=== PATIENT | male | born 1955 | race Caucasian/White ===

== ENCOUNTER 2020-05-03 14:39 | Outpatient (CLI) | payer MEDICARE, MEDICAID, SELFPAY ==
--- NOTE | 2020-05-03 14:53 | ECHO_ITS ---
Patient Info Name: Akhil Morton Age: 64 years : 1955 Gender: Male Ht: 69 in Wt: 335 lbs BSA: 2.80 m2 HR: 77 bpm BP: 115 / 92 mmHg Technical Quality: Fair Exam Date: 05/03/2020 3:03 PM Exam Location: [facility] Patient Status: Outpatient Admit Date: 05/03/2020 Staff Ordering Physician: Curtis Solo MD Credit Collector: Zuri Varghese RDCS Attending Provider: Curtis Solo MD Referring Physician: Germania DELGADO; Exam Type: CA echo doppler color flow Study Info Indications I50.9 - Heart failure, unspecified Complete two-dimensional, color flow and Doppler transthoracic echocardiogram is performed. Summary 1. Complete two-dimensional, color flow and Doppler transthoracic echocardiogram is performed. 2. Left ventricular chamber dimension is normal. 3. Left ventricular systolic function is normal, estimated at 60-65%. 4. There is mildly increased left ventricular wall thickness. 5. The left ventricular diastolic function is normal. 6. E/e' 7 is not elevated. 7. Left atrial chamber dimension is moderately enlarged. 8. There is moderate aortic valve sclerosis. 9. The mitral valve has mildly calcified annulus. 10. There is trace mitral valve regurgitation. 11. No pulmonary hypertension, estimated pulmonary arterial systolic pressure is 25 mmHg. Left Ventricle E/e' 7 is not elevated. Left ventricular chamber dimension is normal. Left ventricular systolic function is normal, estimated at 60-65%. There is mildly increased left ventricular wall thickness. The left ventricular diastolic function is normal. Right Ventricle Right ventricular chamber dimension is normal. Right ventricular systolic function is normal. Left Atria Left atrial chamber dimension is moderately enlarged. Right Atria Right atrial chamber dimension is normal. Aortic Valve The aortic valve is trileaflet. There is moderate aortic valve sclerosis. There is no aortic valve stenosis. There is no aortic valve regurgitation. Pulmonic Valve There is no pulmonic regurgitation. Mitral Valve The mitral valve has mildly calcified annulus. There is no mitral valve stenosis. There is trace mitral valve regurgitation. Tricuspid Valve There is no tricuspid valve regurgitation. No pulmonary hypertension, estimated pulmonary arterial systolic pressure is 25 mmHg. Pericardium/Pleural There is no pericardial effusion. Inferior Vena Cava Normal inferior vena cava with >50% collapse upon inspiration consistent with normal right atrial pressure, 5 mmHg. Aorta The aortic root size at the sinus of Valsalva is normal. Left Ventricular Outflow Tract Name Value Normal LVOT 2D LVOT Diameter 2.2 cm LVOT Doppler LVOT Peak Gradient 7 mmHg LVOT Mean Gradient 4 mmHg LVOT VTI 29 cm LVOT VTI/AV VTI Ratio 1.2 LVOT Stroke Volume 115 ml LVOT CO 8.9 l/min LVOT CI 3.2 l/min/m2 Pulmonic Valve
== END 2020-05-03 14:40 | disposition home or self-care (01) ==
PROVIDERS: PCP Family Medicine; Visit Provider Family Medicine
DX: I50.9 Heart failure, unspecified (principal); R06.00 Dyspnea, unspecified; I35.0 Nonrheumatic aortic (valve) stenosis
CPT/HCPCS: 93306

== ENCOUNTER 2024-12-11 12:15 | Emergency (ER) | payer MEDICARE, MEDICAID, SELFPAY ==
--- NOTE | ~2024-12-11 | US_ITS ---
EXAMINATION: US venous doppler [facility] DATE: 12/11/2024 13:21 INDICATION: Left lower limb erythema and swelling TECHNIQUE: Grayscale ultrasound images without and with compression and Doppler ultrasound images of the left lower extremity veins were obtained. COMPARISON: None. FINDINGS: The visualized portions of left common femoral vein, profunda (deep) femoral vein, femoral vein, popl iteal vein, peroneal veins, posterior tibial veins, gastrocnemius vein and greater saphenous vein out flow are patent. IMPRESSION: 1. No deep venous thrombosis in the left lower limb. Reviewed, dictated and finalized at location A.
--- OUTSIDE RECORDS SUMMARY | 2024-12-11 12:18 | XMS_ITS | Referral Summary ---
Author Organization [facility] Address [address] [place] [address] Care Team Providers Care Medical Genetics Director Name Role Phone Russel Sharp MD Primary Care Provider [phone] Rose Marie Grace NP Unavailable Encounters Date Type Department Care Team Description 12/11/2024 11:00 AM CDT Office Visit [facility] at [address] [phone] Scarlet Garcia NP Leg swelling (Primary Dx); Leg erythema; Lymphedema 11/24/2024 Telephone [facility] at [address] [phone] Russel Sharp MD Alternative medication 11/05/2024 7:30 AM CDT Office Visit [facility] at [address] [phone] Carol Perales NP Acute bronchitis, unspecified organism (Primary Dx); Mild intermittent asthma without complication; Mild persistent asthma with exacerbation 10/07/2024 Plan of Care Documentation [facility] [address] [place] [id number] 10/07/2024 1:30 PM CDT Therapy [facility] [address] [place] [id number] Gianna Harrison, OT Lymphedema 09/28/2024 1:30 PM CDT Office Visit [facility] at [address] [phone] Russel Sharp MD Encounter for Medicare annual wellness exam (Primary Dx); Persistent atrial fibrillation (HCC); Class 3 severe obesity due to excess calories with serious comorbidity and body mass index (BMI) of 50.0 to 59.9 in adult; Benign essential hypertension; Low serum high density lipoprotein (HDL); Vitamin D deficiency; Gastroesophageal reflux disease without esophagitis; RODERICK (obstructive sleep apnea); Lymphedema; Other thrombophilia (HCC); Need for hepatitis B screening test 09/22/2024 Results Follow-Up [facility] at [address] [phone] Russel Sharp MD PSA screen, Vitamin D 25 hydroxy, Lipid panel, Additional followed-up results: 4 09/21/2024 9:35 AM CDT - 09/21/2024 11:59 PM CDT Hospital Encounter [address] [address] Prostate cancer screening; Vitamin D deficiency; Screening for cholesterol level; Benign essential hypertension Discharge Disposition: Discharge to home or self care 09/21/2024 9:45 AM CDT Lab [facility] at [address] [phone] Benign essential hypertension (Primary Dx) from Last 3 Months Allergies Active Allergy Reactions Criticality Noted Date Comments Lisinopril Cough Low 02/20/2003 Medications acetaminophen (TYLENOL) 500 mg tablet Take 1 tablet (500 mg total) by mouth every 6 (six) hours as needed for pain Active docusate sodium (COLACE) 100 mg capsuleIndicatio ns:constipation Take 1 capsule (100 mg total) by mouth 2 (two) times a day Active [id number] -fish oil (Fish OiL) 120 mg-180 mg- 60 mg-1,200 mg capsule,delayed release(DR/EC) 10/09/19 23 Active metoprolol XL (TOPROL-XL) 100 mg 24 hr tablet Take 1 tablet (100 mg total) by mouth daily 90 tablet 3 03/27/20 24 Active B cmplx 4/vit D3/C/folic/zinc (VITAL-D RX ORAL) Take by mouth Active famotidine (PEPCID) 20 mg tablet Take 1 tablet (20 mg total) by mouth daily 90 tablet 1 06/12/19 25 Active triamterene-hydr oCHLOROthiazide 37.5-25 mg per tablet/capsule TAKE 1 TABLET BY MOUTH DAILY 90 tablet 1 07/14/19 25 Active apixaban (Eliquis) 5 mg tabletIndication s:Persistent atrial fibrillation (HCC) Take 1 tablet (5 mg total) by mouth 2 (two) times a day 180 tablet 1 09/29/19 25 Active cholecalciferol (Vitamin D3) 2000 unit capsule Take 1 capsule (2,000 Units total) by mouth daily Active calcium carbonate (TUMS ORAL) Take by mouth 4 (four) times a day as needed (heartburn) Active meloxicam (MOBIC) 15 mg tablet TAKE 1 TABLET(15 MG) BY MOUTH DAILY 100 tablet 1 10/25/19 25 Active Lactobacillus acidophilus (PROBIOTIC ACIDOPHILUS ORAL) Take by mouth Active fluticasone propion-salmeter oL (ADVAIR DISKUS) 250-50 mcg/dose diskus inhaler Inhale 1 puff 2 (two) times a day Rinse mouth with water after use. Do not swallow. 3 each 4 11/25/19 25 Active albuterol HFA (PROVENTIL HFA,VENTOLIN HFA,PROAIR HFA) 90 mcg/actuation inhalerIndicatio ns:Mild intermittent asthma without complication INHALE 2 PUFFS BY MOUTH EVERY 6 HOURS NEEDED FOR WHEEZING 8.5 g 11/30/19 25 Active amLODIPine (NORVASC) 5 mg tabletIndication s:Benign essential hypertension Take 1 tablet (5 mg total) by mouth daily 100 tablet 12/08/19 25 Active loratadine (CLARITIN) 10 mg tablet TAKE 1 TABLET(10 MG) BY MOUTH DAILY 100 tablet 12/09/19 25 Active loratadine (CLARITIN) 10 mg tablet TAKE 1 TABLET( 10 MG TOTAL) BY MOUTH DAILY 100 tablet 08/18/19 25 025 Discontinued amLODIPine (NORVASC) 5 mg tablet TAKE 1 TABLET(5 MG) BY MOUTH DAILY 100 tablet 08/22/19 25 025 Discontinued(Re order) albuterol HFA (PROVENTIL HFA,VENTOLIN HFA,PROAIR HFA) 90 mcg/actuation inhalerIndicatio ns:Mild intermittent asthma without complication INHALE 2 PUFFS BY MOUTH EVERY 6 HOURS NEEDED FOR WHEEZING 8.5 g 11/04/19 25 025 Discontinued amoxicillin-clav ulanate (AUGMENTIN) 875-125 mg per tabletIndication s:Acute bronchitis, unspecified organism Take 1 tablet by mouth 2 (two) times a day for 10 days 20 tablet 11/06/19 25 025 benzonatate (TESSALON) 200 mg capsuleIndicatio ns:Acute bronchitis, unspecified organism Take 1 capsule (200 mg total) by mouth 3 (three) times a day as needed for cough for up to 7 days 20 capsule 11/06/19 25 025 budesonide-formo teroL (SYMBICORT) 160-4.5 mcg/actuation inhalerIndicatio ns:Acute Asthma Attack,Maintenan ce Therapy for Asthma Inhale 2 puffs 2 (two) times a day Rinse mouth with water after use. Do not swallow. 1 each 3 11/06/19 25 025 Discontinued Active Problems Problem Noted Date Diagnosed Date Other thrombophilia 09/28/2024 Vitamin D deficiency 04/19/2024 Assessment & Plan (04/19/2024 5:49 PM SLABBER LIGHT): - Start supplementation with OTC vitamin-D 3 1000 IU daily - Repeat vitamin-D level in 6 months Class 3 severe obesity due t o excess calories with serious comorbidity and body mass index (BMI) of 50.0 to 59.9 in adult 04/19/2024 Assessment & Plan (09/28/2024 1:46 PM CDT): BMI Follow-up includes: nutrition counseling, exercise counseling, and education provided. Assessment & Plan (04/19/2024 5:51 PM SLABBER LIGHT): - heart healthy, low-fat/high-fiber diet - Aim to walk at least 30 minutes daily- divided intervals as tolerated Low serum high density lipoprotein (HDL) 024 Assessment & Plan (04/19/2024 5:58 PM SLABBER LIGHT): - LDL at goal; HDL low- Pt has been supplementing with red rice yeast, consider supplementation with omega-3 fish oil to increase HDL, encouraged routine physical activity - LFTs normal - Repeat lipid panel in 6 months Encounter for Medicare annual wellness exam 08/12 Assessment & Plan (09/05/2023 2:08 PM CDT): A(n) yearly Medicare Annual Wellness Visit has been performed today. Akhil Morton is not up to date on screening tests. He is in need of hepatitis B screening . He is up to date on needed preventative vaccinations. We discussed healthy lifestyle habits, educational material has been given. Medications reviewed, changes documented as per the medical record and discussed with patient along with risks vs benefits. Return in 6 months Acute bronchitis 06/26/2023 Assessment & Plan (11/05/2024 2:58 PM CDT): Orders: XR Chest PA Lateral 2 Views; Future amoxicillin-clavulanate (AUGMENTIN) 875-125 mg per tablet; Take 1 tablet by mouth 2 (two) times a day for 10 days benzonatate (TESSALON) 200 mg capsule; Take 1 capsule (200 mg total) by mouth 3 (three) times a day as needed for cough for up to 7 days budesonide-formoteroL (SYMBICORT) 160-4.5 mcg/actuation inhaler; Inhale 2 puffs 2 (two) times a day Rinse mouth with water after use. Do not swallow. Assessment & Plan (06/26/2023 11:22 AM SLABBER LIGHT): Viral rapid tests Zpak, steroid course sent due to symptom trajectory Benzonatate as needed for cough suppression Continue Mucinex/Robitussin Lungs seem clear enough, but if symptoms don't improve from today we will get imaging Cellulitis and abscess of left lower extremity 1 06/08/2022 Persistent atrial fibrillation 11/22/2022 Assessment & Plan (03/10/2023 11:23 AM CDT): Rate controlled with Toprol-XL He also continues anticoagulation with Eliquis Fish oil supplement on board Lymphedema 09/24/2022 Assessment & Plan (10/23/2022 9:40 AM CDT): There was discussion of possible lymphedema clinic at previous visit. Patient scheduled for ECHO 11/05/22. Mild intermittent asthma without complication Assessment & Plan (11/05/2024 2:58 PM CDT): Orders: budesonide-formoteroL (SYMBICORT) 160-4.5 mcg/actuation inhaler; Inhale 2 puffs 2 (two) times a day Rinse mouth with water after use. Do not swallow. Assessment & Plan (03/26/2022 2:45 PM SLABBER LIGHT): Condition stable, will send in prn inhaler to gauge control. RODERICK (obstructive sleep apnea) 03/26/2022 Assessment & Plan (04/19/2024 5:51 PM SLABBER LIGHT): - Continue routine CPAP use Assessment & Plan (03/26/2022 2:44 PM SLABBER LIGHT): Needs a new CPAP, his is recalled. Has noticed increased daytime sleepiness without usage. Was using cpap for hours 8/night 7 nights/wk and was feeling much better with it. Would recommend usage of CPAP, will order new machine for patient. Gastroesophageal reflux disease without esophagi tis 03/26/2022 Assessment & Plan (03/26/2022 2:49 PM SLABBER LIGHT): Switching out patient's Zantac for Pepcid Pt to reach out if sx not controlled, will need to adjust dosage. Class 3 severe obesity due t o excess calories with serious comorbidity and body mass index (BMI) of 45.0 to 49.9 in adult 03/26/2022 Assessment & Plan (09/05/2023 2:09 PM CDT): BMI Follow-up includes: nutrition counseling, exercise counseling, and education provided. Assessment & Plan (10/23/2022 8:54 AM CDT): Healthy, low carbohydrate lifestyle and exercise for 150min/week recommended Assessment & Plan (03/26/2022 2:57 PM SLABBER LIGHT): Discussed CHIP program. Labs ordered, pt education provided in regards to nutrition. Encouraged to keep a food diary, Healthy, low carbohydrate lifestyle and exercise for 150min/week recommended Encounter for screening colonoscopy 02/13/2018 Overview (02/13/2018): Added automatically from request for surgery [id number] Assessment & Plan (03/26/2022 1:48 PM SLABBER LIGHT): Previous Colonoscopy 2017, repeat every 3 years Referral to GI placed Allergic rhinitis 07/29/2017 Assessment & Plan (03/26/2022 2:51 PM SLABBER LIGHT): Stable on Claritin. Benign essential hypertension 07/29/2017 Assessment & Plan (09/28/2024 1:46 PM CDT): Blood Pressure Follow-up: Lifestyle modifications education provided on sodium reduction, increase physical activity, reduce alcohol consumption, and weight reduction. Assessment & Plan (04/19/2024 5:55 PM SLABBER LIGHT): - Chronic; stable at goal of < 140/90 - Continue amlodipine 5 mg daily, metoprolol XL 100 mg daily, plus triamterene- HCTZ 37.5- 25 mg daily - eGFR > 90 - Low-sodium/heart healthy diet - Repeat CBC, CMP, lipid panel in 6 months prior to annual wellness Assessment & Plan (03/10/2023 11:23 AM CDT): BP is acceptable Continue current regimen Labs show good results. Cholesterol is acceptable. Renal function is improving, in good shape The blood counts are fine Add red yeast rice supplement, will help control cholesterol Discussed lower-carb diet, continue exercise (recommend following exercise regimen with goal of 30 mins a day 5 days a week of light to mod cardio) Assessment & Plan (10/23/2022 8:53 AM CDT): BP looks good in office, continuing Amlodipine, Toprol-XL, and Triamterene-HCTZ. Assessment & Plan (03/26/2022 2:51 PM SLABBER LIGHT): BP stable in office, continues Amlodipine, Toprol-XL, and Triamterene-Hctz. Labs ordered. History of colonic polyps 07/29/2017 Assessment & Plan (03/26/2022 1:48 PM SLABBER LIGHT): Previous Colonoscopy 2017, repeat every 3 years Referral to GI placed Intellectual functioning disability 07/29/2017 Assessment & Plan (03/26/2022 2:48 PM SLABBER LIGHT): Accompanied by brother in law today. Brother in law states that patient tends to be overly agreeable and not 100% understand what directions are/will say what he thinks what provider wants to hear. Will continue to educate and ensure understanding. Lumbar spondylosis 07/29/2017 Mild mental retardation (I.Q. 50-70) 07/29/2017 Immunizations Immunization Administration Dates Next Due COVID-19 MRNA (MODERNA) .5 M L (50 MCG) VACCINE (12 YEARS AND UP) 02/04/2024 COVID-19 mRNA (Onehub) 0.3 m L (30 mcg) vaccine (12 years and up) 02/01/2023 Influenza, Quad, Adjuvantate d, Intramuscular 02/01/2023,03/05/2022,02/20/2021 Influenza, Quadrivalent, Rec ombinant, Egg Free, Preservative Free, Intramuscular 01/19/2019 Influenza, Quadrivalent, Spl it, Preservative Free, Intramuscular 02/02/2018,01/11/2018,02/17/2016 Influenza, Trivalent, High D ose, Split, Preservative Free, Intramuscular 02/07/2024 Influenza, Trivalent, IM (MDV) 04/09/2014 Influenza, Unspecified 02/20/2024,2023,05/13/2022(Defer red: Patient Refused),05/13/2021(Deferred: Patient Refused) Pneumococcal Conjugate PCV 13 01/19/2019 Pneumococcal Conjugate Pcv20 11/22/2022,03/26/20 22 Tdap 11/26/2022,03/26/2022 ZOSTER Recombinant 07/10/2019,04/18/2019 Social History Tobacco Use Types Packs/Day Years Used Date Smoking Tobacco: Never Smokeless Tobacco: Never Tobacco Cessation:Counseling Given: Not Answered AUDIT-C Answer Date Recorded Q1: How often do you have a drink containing alcohol? Never 11/05/2024 Q2: How many drinks containi ng alcohol do you have on a typical day when you are drinking? Patient does not drink Q3: How often do you have si x or more drinks on one occasion? Never 11/05/2024 PHQ-2 Answer Date Recorded PHQ-2 Total Score (If total score is 3 or more points, staff should administer the PHQ-9) 0 11/05/2024 Personal Safety Answer Date Recorded Getting School Help Needed Denies 05/24 Sex and Gender Information Value Date Recorded Sex Assigned at Not on file Legal Sex Male 9:16 AM CDT Gender Identity Not on file Sexual Orientation Straight 07/09/2023 6: 15 PM SLABBER LIGHT Last Filed Vital Signs Vital Sign Reading Time Taken Comments Blood Pressure 133/77 12/11/2024 10:37 AM CDT Pulse 72 12/11/2024 10:37 AM CDT Temperature 36.3 C (97.3 F) 12/11/2024 10:37 AM CDT Respiratory Rate 18 12/11/2024 10:37 AM CDT Oxygen Saturation 99% 12/11/2024 10:37 AM CDT Inhaled Oxygen Concentration - - Weight 161.9 kg (357 lb) 12/11/2024 10:37 AM CDT Height 175.3 cm (5' 9) 12/11/2024 10:37 AM CDT Body Mass Index 52.72 12/11/2024 10:37 AM CDT Plan of Treatment Not on file Procedures Procedure Name Priority Date/Time Associated Diagnosis Comments EGFR Routine 09/21/2024 9:35 AM CDT Benign essential hypertension DIFFERENTIAL AUTO Routine 09/21/2024 9:3 5 AM CDT Benign essential hypertension CBC WITH AUTO DIFFERENTIAL Routine 09/21/2024 9:35 AM CDT Benign essential hypertension COMPREHENSIVE METABOLIC PANEL Routine 09/21/2024 9:35 AM CDT Benign essential hypertension LIPID PANEL Routine 09/21/2024 9:35 AM CDT Screening for cholesterol level VITAMIN D 25 HYDROXY Routine 09/21/2024 9:35 AM CDT Vitamin D deficiency PSA SCREEN Routine 09/21/2024 9:35 AM CDT Prostate cancer screening COLONOSCOPY 06/18/2022 9:41 AM SLABBER LIGHT HEPATITIS C ANTIBODY Routine 03/26/2022 2:48 PM SLABBER LIGHT Encounter for hepatitis C screening test for low risk patient from Last 3 Months or Most Recently Relevant to Health Maintenance Results * eGFR (09/21/2024 9:35 AM CDT) eGFR >90 >=60 mL/min/1. 73 m2 Comment: Interpretive Data Reference Interval Normal >/= 90 mL/min/1.73m2 Mildly decreased* 60 - 89 mL/min/1.73m2 Mildly to moderately decreased 45 - 59 mL/min/1.73m2 Moderately to severely decreased 30 - 44 mL/min/1.73m2 Severely decreased 15 - 29 mL/min/1.73m2 Kidney Failure < 15 mL/min/1.73m2 *Relative to young adult level Estimated glomerular filtration rate is determined by the 2020 CKD-EPI equation recommended by the National Kidney Foundation (A Unifying Approach to GFR Estimation: Recommendations of the NKF-ASK Task Force on Reassessing the Inclusion of Race in Diagnosing Kidney Disease, JASN 2020). The CKD-EPI equation should not be used for patients with unstable renal function and has not been validated in children and those over 70. Current interpretive data was last reviewed 2021. Blood 09/21/2024 9:35 AM CDT 09/21/2024 10:09 PM CDT us Russel Sharp MD LAB BLOOD ORDERABLES Final Result [facility] [id number] Department [place] [address] * (ABNORMAL) Differential, auto (09/21/2024 9:35 AM CDT) Neutrophil abs 5.92 1.50 - 6.50 K/cumm Imm gran abs 0.04 0.00 - 0.10 K/cumm [facility] Lymphocyte abs 2.12 0.80 - 3.30 K/cumm [facility] Monocyte abs 0.85(H) 0.20 - 0.80 K/cumm [facility] Eosinophil abs 0.13 0.00 - 0.50 K/cumm [facility] Basophil abs 0.11(H) 0.00 - 0.10 K/cumm [facility] Neutrophil pct 64.6 % [facility] Comment: Interpretive Data Percent cell count reference ranges are not reported, since discordance with absolute values may lead to misinterpretation of CBC data. Current Interpretive Data was last revised on 2017. Imm gran pct 0.4 % [facility] Comment: Interpretive Data Percent cell count reference ranges are not reported, since discordance with absolute values may lead to misinterpretation of CBC data. Current Interpretive Data was last revised on 2017. Lymphocyte pct 23.1 % [facility] Comment: Interpretive Data Percent cell count reference ranges are not reported, since discordance with absolute values may lead to misinterpretation of CBC data. Current Interpretive Data was last revised on 2017. Monocyte pct 9.3 % [facility] Comment: Interpretive Data Percent cell count reference ranges are not reported, since discordance with absolute values may lead to misinterpretation of CBC data. Current Interpretive Data was last revised on 2017. Eosinophil pct 1.4 % [facility] Comment: Interpretive Data Percent cell count reference ranges are not reported, since discordance with absolute values may lead to misinterpretation of CBC data. Current Interpretive Data was last revised on 2017. Basophil pct 1.2 % [facility] Comment: Interpretive Data Percent cell count reference ranges are not reported, since discordance with absolute values may lead to misinterpretation of CBC data. Current Interpretive Data was last revised on 2017. Blood 09/21/2024 9:35 AM CDT 09/21/2024 9:59 PM CDT Russel Sharp MD LAB BLOOD ORDERABLES Final Result Performing Organization Address [facility] Phone [facility] [id number] [facility] [place] [address] * PSA screen (09/21/2024 9:35 AM CDT) PSA-Total 1.61 <=5.40 ng/mL Comment: Interpretive Data AGE SEX REFERENCE INTERVAL 0 minutes-150 years Female None 0 minutes-49 years Male None 50-59 years Male 0-3.90 60-69 years Male 0-5.40 70-79 years Male 0-6.20 80-150 years Male 0-6.20 The Doug PSA Total assay procedure was used. Results from different manufacturers or methods may not be comparable. Serial testing should be performed using the same method. Current interpretive data last revised 21. Blood 09/21/2024 9:35 AM CDT 09/21/2024 9:59 PM CDT Russel Sharp MD LAB BLOOD ORDERABLES Final Result Performing Organization Address [facility] de Phone Number [facility] [address] [place] [address] * (ABNORMAL) CBC with auto differential (09/21/2024 9:35 AM CDT) WBC 9.17 3.80 - 9.90 K/cumm Hgb 14.5 13.0 - 17.5 g/dL [facility] Hct 45.4 38.9 - 50.3 % [facility] Plt 259 150 - 400 K/cumm [facility] MPV 10.3 9.1 - 12.3 fL [facility] RBC 4.76 4.30 - 5.80 M/cumm [facility] MCV 95.4 81.3 - 96.4 fL [facility] MCH 30.5 27.1 - 33.3 pg [facility] MCHC 31.9(L) 32.3 - 35.7 g/dL [facility] RDW CV 14.0 11.1 - 14.9 % [facility] RDW SD 48.6(H) 35.7 - 48.1 fL [facility] NRBC abs 0.00 0.00 - 0.01 K/cumm [facility] Blood 09/21/2024 9:35 AM CDT 09/21/2024 9:59 PM CDT Russel Sharp MD LAB BLOOD ORDERABLES Final Result Performing Organization Address [facility] Co de Phone Number [facility] [phone] [place] [address] * Vitamin D 25 hydroxy (09/21/2024 9:35 AM CDT) Vitamin D 25-OH 40 30 - 80 ng/mL Blood 09/21/2024 9:35 AM CDT 09/21/2024 9:59 PM CDT Russel Sharp MD LAB BLOOD ORDERABLES Final Result Performing Organization Address [facility] Co de Phone Number [facility] [phone] [place] [address] * Lipid panel (09/21/2024 9:35 AM CDT) Cholesterol 132 30 - 199 mg/dL Comment: Interpretive Data Ages < or = 19 years Acceptable: <170 mg/dL Borderline high: 170-199 mg/dL High: >or= 200 mg/dL Ages > or = 20 years Desirable: <200 mg/dL Borderline high: 200-239 mg/dL High: >or= 240 mg/dL Literature References: 1. Expert Panel on Integrated Guidelines for Cardiovascular Health and Risk Reduction in Children and Adolescents. Pediatrics 2011;128:S213 2. NCEP Expert Panel. Circulation 2004;110:227 Current Interpretive Data was last revised on 2017. Triglycerides 79 <=149 mg/dL [facility] Comment: Interpretive Data Ages < or = 9 years Acceptable: <75 mg/dL Borderline high: 75-99 mg/dL High: >or= 100 mg/dL Ages 10 to 20 years Acceptable: <90 mg/dL Borderline high: 90-129 mg/dL High: >or= 130 mg/dL Ages > or = 20 years Desirable: <150 mg/dL Borderline high: 150-199 mg/dL High: 200-499 mg/dL Very high: >or= 499 mg/dL Literature References: 1. Expert Panel on Integrated Guidelines for Cardiovascular Health and Risk Reduction in Children and Adolescents. Pediatrics 2011;128:S213 2. NCEP Expert Panel. Circulation 2004;110:227 Current Interpretive Data was last revised on 2017. HDL 43 >=40 mg/dL [facility] Comment: Interpretive Data Ages < or = 19 years Acceptable: >45 mg/dL Borderline low: 40-45 mg/dL Low: <40 mg/dL Ages > or = 20 years Desirable: >or= 60 mg/dL Low: <40 mg/dL Literature References: 1. Expert Panel on Integrated Guidelines for Cardiovascular Health and Risk Reduction in Children and Adolescents. Pediatrics 2011;128:S213 2. NCEP Expert Panel. Circulation 2004;110:227 Current Interpretive Data was last revised on 2017. LDL, calculated 73 <=129 mg/dL [facility] Comment: Interpretive Data Ages < or = 19 years Acceptable: <110 mg/dL Borderline high: 110-129 mg/dL High: >or= 130 mg/dL Ages > or = 20 years Optimal: <100 mg/dL Near optimal: 100-129 mg/dL Borderline high: 130-159 mg/dL High: >160 mg/dL Calculated using the Stefan LDL-C estimating equation. This equation was implemented on 2024. Prior to this date LDL-C was estimated using the Friedewald equation. Literature References: 1. Expert Panel on Integrated Guidelines for Cardiovascular Health and Risk Reduction in Children and Adolescents. Pediatrics 2011;128:S213 2. NCEP Expert Panel. Circulation 2004;110:227 3. Stefan Carl al. GORDON Cardiol. 2020 September 10;5(5):540-548. doi: 10.1001/[email or web address].2020.0013 Current Interpretive Data was last revised on 2024. Non-HDL Cholesterol 89 mg/dL [facility] Comment: Interpretive Data Ages < or = 19 years Acceptable: <120 mg/dL Borderline high: 120-144 mg/dL High: >145 mg/dL Ages > or = 20 years When triglycerides are >200 mg/dL, Non-HDL cholesterol is a secondary target of therapy with treatment goals that are 30 mg/dL greater than the LDL cholesterol target. Literature References: 1. Expert Panel on Integrated Guidelines for Cardiovascular Health and Risk Reduction in Children and Adolescents. Pediatrics 2011;128:S213 2. NCEP Expert Panel. Circulation 2004;110:227 Current Interpretive Data was last revised on 2017. Chol/HDL ratio 3 [facility] Blood 09/21/2024 9:35 AM CDT 09/21/2024 9:59 PM CDT us Russel Sharp MD LAB BLOOD ORDERABLES Final Result [facility] [id number] Department [place] [address] * (ABNORMAL) Comprehensive metabolic panel (09/21/2024 9:35 AM CDT) Sodium 138 135 - 145 mmol/L Potassium, pl 4.3 3.3 - 4.9 mmol/L [facility] Chloride 99 97 - 110 mmol/L [facility] HEALTH CO2 28 22 - 32 mmol/L [facility] Anion gap 11 2 - 15 mmol/L [facility] BUN 16 6 - 25 mg/dL [facility] Creatinine 0.74(L) 0.80 - 1.30 mg/dL [facility] Glucose 93 70 - 199 mg/dL [facility] Comment: Interpretive Data Fasting glucose >/= 126 mg/dl is diagnostic for diabetes. Fasting is defined as no caloric intake for at least 8 hours. Fasting glucose between 100 mg/dl to 125 mg/dl is diagnostic of prediabetes. In a patient with classic symptoms of hyperglycemia or hyperglycemic crisis, a random glucose >/= 200 mg/dl is diagnostic for diabetes. In the absence of unequivocal hyperglycemia, results should be confirmed by repeat testing. The classification and Diagnosis of Diabetes Diabetes Care 2021; 46: S19-S40. Current interpretive data was last revised 2022. Calcium 10.2 8.5 - 10.3 mg/dL [facility] Bilirubin, total 0.9 0.1 - 1.2 mg/dL [facility] Protein, pl 7.6 6.5 - 8.5 g/dL [facility] Albumin 3.9 3.5 - 5.0 g/dL [facility] Alk phos 100 40 - 130 Units/L [facility] ALT 15 7 - 55 Units/L [facility] AST 25 10 - 50 Units/L [facility] Blood 09/21/2024 9:35 AM CDT 09/21/2024 9:59 PM CDT us Russel Sharp MD LAB BLOOD ORDERABLES Final Result [facility] [id number] Department [place] [address] * COLONOSCOPY (06/18/2022 9:41 AM [facility]) Anatomical Region Laterality Modality Other Narrative Procedure Note Mamadou Mcwilliams MD - 06/18/2022 9:41 AM [facility] Patient Name: Akhil Morton Procedure Date: 06/18/2022 9:41 AM Date of : 1955 Admit Type: Outpatient Age: 66 Gender: Male Attending MD: Mamadou Mcwilliams M.D. Room: REPLACED BY [facility] ROOM 2 Note Status: Finalized Patient Profile: Refer to note in patient chart for documentation of history and physical. Procedure: Colonoscopy Indications: High risk colon cancer surveillance: Personalhistory of colonic polyps, Last colonoscopy: February 2018 Referring MD: Russel Sharp M.D. Providers: Mamadou Mcwilliams M.D. Impression: - Hemorrhoids found on perianal exam. - One 2 mm polyp in the ascending colon, removedwith a jumbo cold forceps. Resected and retrieved. - One 5 mm polyp in the descending colon, removedwith a cold snare. Resected and retrieved. - Diverticulosis in the sigmoid colon. - The examination was otherwise normal. Recommendation: - Discharge patient to home. - Resume previous diet. - Continue present medications. - Await pathology results. - Repeat colonoscopy in 5 years for surveillance. - Return to primary care physician as previously scheduled. Medicines: Propofol per Anesthesia Complications: No immediate complications. Estimated Blood Loss: Estimated blood loss: none. Procedure: Pre-Anesthesia Assessment: - This assessment was completed [Time ofAssessment] prior to the administration of sedation. The benefits, risks and alternatives of theprocedure and sedation were discussed and informed consentwas obtained. All questions were answered. Please referto the signed informed consent document in the medical record. The bowel preparation used was Miralax and bisacodyl tablets via split dose instruction. The scope was passed under direct vision. TheColonoscope [id number] was introduced through the anus and advanced to the the cecum, identified by appendiceal orifice and ileocecal valve. The colonoscopy was performed without difficulty. The patient tolerated the procedure well. The qualityof the bowel preparation was adequate to identifypolyps 6 mm and larger in size. The ileocecal valve, appendiceal orifice, and rectum werephotographed. Findings: Hemorrhoids were found on perianal exam. A 2 mm polyp was found in the ascending colon. The polyp was sessile. The polyp was removed with a jumbo cold forceps. Resection andretrieval were complete. Verification of patient identification for thespecimen was done by the physician and nurse using the patient's name andbirth date. Estimated blood loss was minimal. A 5 mm polyp was found in the descending colon. The polyp wassessile. The polyp was removed with a cold snare. Resection and retrieval were complete. Verification of patient identification for the specimen was done by the physician and nurse using the patient's name and birthdate. Estimated blood loss was minimal. Multiple small and large-mouthed diverticula were found in thesigmoid colon. The exam was otherwise without abnormality. Electronically signed by Mamadou Mcwilliams M.D. Mamadou Mcwilliams M.D. 06/18/2022 10:33:03 AM Number of Addenda: 0 Note Initiated On: 06/18/2022 9:41 AM Procedure Code(s): --- Professional --- 97319, Colonoscopy, flexible; with removal of tumor(s), polyp(s), or other lesion(s) by snare technique 23798, 59, Colonoscopy, flexible; with biopsy, single or multiple Diagnosis Code(s): --- Professional --- K57.30, Diverticulosis of large intestine without perforation orabscess without bleeding D12.4, Benign neoplasm of descending colon D12.2, Benign neoplasm of ascending colon K64.9, Unspecified hemorrhoids Z86.010, Personal history of colonic polyps CPT copyright 2020 [employer]. All rights reserved. The codes documented in this report are preliminary and upon hair specialist reviewmay be revised to meet current compliance requirements. Recognized by the [employer] for promoting quality in endoscopy us Mamadou Mcwilliams MD ENDOSCOPY PROCEDURES Final Re sult * Hepatitis C antibody (03/26/2022 2:48 PM [facility]) Hep C Ab Nonreactive Nonreactive [facility] Comment: Interpretive Data Nonreactive: Antibodies to HCV not detected. Does NOT exclude the possibility of recent exposure to HCV. Equivocal: Equivocal for HCV antibodies. Supplemental molecular testing will be automatically performed to determine infection status in accordance with current CDC screening recommendations. Reactive: Positive for HCV antibodies. This may represent current or past HCV infection. Supplemental molecular testing will be automatically performed to determine current infection status in accordance with current CDC screening recommendations. Interpretive data was last revised on 2019. Blood 03/26/2022 2:48 PM [facility] 03/26/2022 7:56 PM [facility] us Rose Marie Grace NP LAB MICROBIOLOGY - GENERAL ORDER TRACY Final Result [facility] [address] Department [place] [address] from Last 3 Months or Most Recently Relevant to Health Maintenance Insurance MEDICARE [facility] Address: [address] [address] [place] [address] [facility] IDPA MEDICARE [facility] Address: [address] [address] [place] [address] Advance Directives For more information, please contact: [phone] * Full Code (Latest Code Status on File) Date Activated Date Inactivated Comments 06/18/2022 9:40 AM 06/18/2022 3:37 PM * Full Code Date Activated Date Inactivated Comments 03/24/2018 10:02 AM 03/24/2018 3:22 PM * Full Code Date Activated Date Inactivated Comments 03/24/2018 10:01 AM 03/24/2018 10:02 AM Care Teams Medical Genetics Director Relationship Specialty Start Date End Date Russel Sharp MD [address] [place] [address] PCP - General Family Medicine 03/26/22 Rose Marie Grace NP [address] [place] [address] Nurse Practitioner Family Medicine 04/06/22
--- OUTSIDE RECORDS SUMMARY | 2024-12-11 12:18 | XMS_ITS | Encounter Summary ---
Author Organization [facility] Healthcare Address [address] [place] [address] Care Team Providers Care Mechanical Supervisor Name Role Phone Russel Sharp MD Primary Care Provider [phone] Rose Marie Grace NP Unavailable Reason for Visit * Reason Comments Edema Patient here for c/o leg swelling more than usual. Encounter Details Date Type Department Care Team (Late st Contact Info) Description 12/11/2024 11:00 AM CDT Office Visit [facility] at [address] [address] Scarlet Garcia NP [address] [place] [id number] Leg swelling (Primary Dx); Leg erythema; Lymphedema Social History Tobacco Use Types Packs/Day Years Used Date Smoking Tobacco: Never Smokeless Tobacco: Never AUDIT-C Answer Date Recorded Q1: How often [...] Sexual Orientation Straight 07/09/2023 6: 15 PM [employer] NET [employer]INGER documented as of this encounter Last Filed Vital Signs Vital Sign Reading [...] Mass Index 52.72 12/11/2024 10:37 AM CDT documented in this encounter Patient Instructions * Patient Instructions* Scarlet Garcia NP - 12/11/2024 11:00 AM CDT --Left leg is 5.5 cm larger than the right leg. Leg is tender and warm to touch. Redness does wrap around entire lower leg. --Wells DVT criteria score is a 3 making patient high risk for potential DVT. --Patient does have a history of AFib and is on Eliquis. --Sending patient to ER for further assessment to rule out potential DVT versus cellulitis. EMS declined. Patient is here with healthcare worker that will be driving him to the ER documented in this encounter Plan of Treatment Not on file documented as of this encounter Visit Diagnoses Diagnosis Leg swelling- Primary Swelling of limb Leg erythema Lymphedema Other noninfectious lymphedema documented in this encounter Care Teams Mechanical Supervisor Relationship Specialty Start Date End Date Russel Sharp MD [address] [place] [address] PCP - General Family Medicine 03/26/22 Rose Marie Grace NP [address] [place] [address] Nurse Practitioner Family Medicine 04/06/22 documented as of this encounter
--- OUTSIDE RECORDS SUMMARY | 2024-12-11 12:18 | XMS_ITS | Clinical Summary ---
Author Organization [facility] Address [address] [place] [address] Care Team Providers Care Head Scorer Name Role Phone Russel Sharp MD Primary Care Provider [phone] Rose Marie Grace NP Unavailable Allergies Active Allergy Reactions Criticality Noted Date Comments Lisinopril Cough Low 02/20/2003 Medications acetaminophen (TYLENOL) 500 mg tablet Take 1 tablet (500 mg total) by mouth every 6 (six) hours as needed for pain Active docusate sodium (COLACE) 100 mg capsuleIndicatio ns:constipation Take 1 capsule (100 mg total) by mouth 2 (two) times a day Active [id number] -fish oil (Fish OiL) 120 mg-180 mg- [...] day for 10 days 20 tablet 11/06/19 025 benzonatate (TESSALON) 200 mg capsuleIndicatio ns:Acute [...] 04/19/2024 Assessment & Plan (04/19/2024 5:49 PM PROFESSOR OF SPECIAL EDUCATION): - Start supplementation with OTC vitamin-D 3 [...] provided. Assessment & Plan (04/19/2024 5:51 PM PROFESSOR OF SPECIAL EDUCATION): - heart healthy, low-fat/high-fiber diet - Aim to walk at least 30 minutes daily- divided intervals as tolerated Low serum high density lipoprotein (HDL) 024 Assessment & Plan (04/19/2024 5:58 PM PROFESSOR OF SPECIAL EDUCATION): - LDL at goal; HDL low- Pt [...] swallow. Assessment & Plan (06/26/2023 11:22 AM PROFESSOR OF SPECIAL EDUCATION): Viral rapid tests Zpak, steroid course sent [...] swallow. Assessment & Plan (03/26/2022 2:45 PM PROFESSOR OF SPECIAL EDUCATION): Condition stable, will send in prn inhaler to gauge control. RODERICK (obstructive sleep apnea) 03/26/2022 Assessment & Plan (04/19/2024 5:51 PM PROFESSOR OF SPECIAL EDUCATION): - Continue routine CPAP use Assessment & Plan (03/26/2022 2:44 PM PROFESSOR OF SPECIAL EDUCATION): Needs a new CPAP, his is recalled. Has noticed increased daytime sleepiness without usage. Was using cpap for hours 8/night 7 nights/wk and was feeling much better with it. Would recommend usage of CPAP, will order new machine for patient. Gastroesophageal reflux disease without esophagi tis 03/26/2022 Assessment & Plan (03/26/2022 2:49 PM PROFESSOR OF SPECIAL EDUCATION): Switching out patient's Zantac for Pepcid Pt [...] recommended Assessment & Plan (03/26/2022 2:57 PM PROFESSOR OF SPECIAL EDUCATION): Discussed CHIP program. Labs ordered, pt education provided in regards to nutrition. Encouraged to keep a food diary, Healthy, low carbohydrate lifestyle and exercise for 150min/week recommended Encounter for screening colonoscopy 02/13/2018 Overview (02/13/2018): Added automatically from request for surgery [id number] Assessment & Plan (03/26/2022 1:48 PM PROFESSOR OF SPECIAL EDUCATION): Previous Colonoscopy 2017, repeat every 3 years Referral to GI placed Allergic rhinitis 07/29/2017 Assessment & Plan (03/26/2022 2:51 PM PROFESSOR OF SPECIAL EDUCATION): Stable on Claritin. Benign essential hypertension 07/29/2017 Assessment & Plan (09/28/2024 1:46 PM CDT): Blood Pressure Follow-up: Lifestyle modifications education provided on sodium reduction, increase physical activity, reduce alcohol consumption, and weight reduction. Assessment & Plan (04/19/2024 5:55 PM PROFESSOR OF SPECIAL EDUCATION): - Chronic; stable at goal of < [...] Triamterene-HCTZ. Assessment & Plan (03/26/2022 2:51 PM PROFESSOR OF SPECIAL EDUCATION): BP stable in office, continues Amlodipine, Toprol-XL, and Triamterene-Hctz. Labs ordered. History of colonic polyps 07/29/2017 Assessment & Plan (03/26/2022 1:48 PM PROFESSOR OF SPECIAL EDUCATION): Previous Colonoscopy 2018, repeat every 3 years Referral to GI placed Intellectual functioning disability 07/29/2017 Assessment & Plan (03/26/2022 2:48 PM PROFESSOR OF SPECIAL EDUCATION): Accompanied by brother in law today. Brother in law states that patient tends to be overly agreeable and not 100% understand what directions are/will say what he thinks what provider wants to hear. Will continue to educate and ensure understanding. Lumbar spondylosis 07/29/2017 Mild mental retardation (I.Q. 50-70) 07/29/2017 Encounters Date Type Department Care Team Description 12/11/2024 11:00 AM CDT Office Visit [facility] at [address] [phone] Scarlet Garcia NP Leg swelling (Primary Dx); Leg erythema; Lymphedema 11/24/2024 Telephone [facility] at [address] [phone] Russel Sharp MD Alternative medication 11/05/2024 7:30 AM CDT Office Visit [facility] [address] [phone] Carol Perales NP Acute bronchitis, unspecified organism (Primary Dx); Mild intermittent asthma without complication; Mild persistent asthma with exacerbation 10/07/2024 1:30 PM CDT Therapy [facility] [address] [place] [address] Gianna Harrison, OT Lymphedema 10/07/2024 Plan of Care Documentation [facility] [address] [place] [phone] 09/28/2024 1:30 PM CDT Office Visit [facility] at [address] [phone] Russel Sharp MD Encounter for Medicare annual [...] hepatitis B screening test 09/22/2024 Results Follow-Up [facility] at [address] [phone] Russel Sharp MD PSA screen, Vitamin D 25 hydroxy, Lipid panel, Additional followed-up results: 4 09/21/2024 9:45 AM CDT Lab [facility] at [address] [phone] Benign essential hypertension (Primary Dx) 09/21/2024 9:35 AM CDT - 09/21/2024 11:59 PM CDT Hospital Encounter [place] [phone] Prostate cancer screening; Vitamin D deficiency; Screening for cholesterol level; Benign essential hypertension Discharge Disposition: Discharge to home or self care from Last 3 Months Immunizations Immunization Administration Dates Next Due COVID-19 MRNA ([employer]) .5 M L (50 MCG) VACCINE (12 YEARS AND UP) 02/04/2024 COVID-19 mRNA ([employer]) 0.3 m L (30 mcg) vaccine (12 [...] 11/22/2022,03/26/20 22 Tdap 11/26/2022,03/26/2022 ZOSTER Recombinant 07/10/2019,04/18/2019 Surgical History Surgery Date Site/Laterality Comments APPENDECTOMY INGUINAL HERNIA REPAIR Left INCISION AND DRAINAGE 05/13/2002 - 05/12/2003 staph infection left thigh at [facility] COLONOSCOPY 03/24/2018 1st Medical History Medical History Date Comments Hypertension Asthma Family History Medical History Relation Name Comments Alzheimer's disease Father Navarro Hearing loss Father Navarro Kidney disease Mother Kristina Relation Name Status Comments Father Navarro Mother Kristina Social History Tobacco Use Types Packs/Day Years [...] Sexual Orientation Straight 07/09/2023 6: 15 PM PROFESSOR OF SPECIAL EDUCATION Obstetrics History Last Filed Vital Signs Vital Sign Reading [...] 12/11/2024 10:37 AM CDT Plan of Treatment Health Maintenance Due Date Last Done Comments Hepatitis B Screening 12/05/1973 Covid-19 Vaccine (8 - 4-2 5 season) 2024 02/07/2024, 02/04/2024, 02/01/2023, Additional history exists Influenza Vaccine (#1) 2025 , 02/07/2024, 02/04/2024, Additional history exists Colon Cancer Screening-Colonoscopy 06/18/2025 06/18/2022, 03/24/2018 Well Visit 65+ 09/28/2025 09/28/2024, 09/05/2023 Depression Screening 11/05/2025 11/05/2024, 09/28/2024, 04/01/2024, Additional history exists Fall Risk Assessment 11/05/2025 11/05/2024, 09/28/2024, 04/01/2024, Additional history exists Prostate Cancer Screening-PSA 09/21/2026, 08/28/2023, 03/26/2022 DTaP/Tdap/Td Vaccine (3 - Td or Tdap) 11/26/2032 11/26/2022, 03/26/2022 Zoster Vaccine Completed 07/10/2019, 04/18/2019 Hepatitis C Screening Completed 03/26/2022 Colon Cancer Screening-CT Colonography Discontinued 06/18/2022, 03/24/2018 Colon Cancer Screening-DNA Stool Discontinued 06/18/19 23, 03/24/2018 Colon Cancer Screening-FIT Discontinued 06/18/2022, Colon Cancer Screening-Sigmoidoscopy Discontinued 06/18/2022, 03/24/2018 Pneumococcal vaccine 65+ Completed 023, 03/26/2022, 01/19/2019 Procedures Procedure Name Priority Date/Time Associated Diagnosis [...] Prostate cancer screening COLONOSCOPY 06/18/2022 9:41 AM PROFESSOR OF SPECIAL EDUCATION HEPATITIS C ANTIBODY Routine 03/26/2022 2:48 PM PROFESSOR OF SPECIAL EDUCATION Encounter for hepatitis C screening test for [...] Sharp MD LAB BLOOD ORDERABLES Final Result [facility] [id number] [facility] Department [place] [address] * (ABNORMAL) Differential, auto (09/21/2024 9:35 AM CDT) Neutrophil abs 5.92 1.50 - 6.50 K/cumm Imm gran abs 0.04 0.00 - 0.10 K/cumm [facility] Lymphocyte abs 2.12 0.80 - 3.30 K/cumm [facility] Monocyte abs 0.85(H) 0.20 - 0.80 K/cumm [facility] Eosinophil abs 0.13 0.00 - 0.50 K/cumm [facility] Basophil abs 0.11(H) 0.00 - 0.10 K/cumm [facility] Neutrophil pct 64.6 % [facility] Comment: Interpretive Data Percent cell count reference ranges are not reported, since discordance with absolute values may lead to misinterpretation of CBC data. Current Interpretive Data was last revised on 2017. Imm gran pct 0.4 % [facility] Comment: Interpretive Data Percent cell count reference ranges are not reported, since discordance with absolute values may lead to misinterpretation of CBC data. Current Interpretive Data was last revised on 2017. Lymphocyte pct 23.1 % [facility] Comment: Interpretive Data Percent cell count reference ranges are not reported, since discordance with absolute values may lead to misinterpretation of CBC data. Current Interpretive Data was last revised on 2017. Monocyte pct 9.3 % [facility] Comment: Interpretive Data Percent cell count reference ranges are not reported, since discordance with absolute values may lead to misinterpretation of CBC data. Current Interpretive Data was last revised on 2017. Eosinophil pct 1.4 % [facility] Comment: Interpretive Data Percent cell count reference ranges are not reported, since discordance with absolute values may lead to misinterpretation of CBC data. Current Interpretive Data was last revised on 2017. Basophil pct 1.2 % [facility] Comment: Interpretive Data Percent cell count reference ranges are not reported, since discordance with absolute values may lead to misinterpretation of CBC data. Current Interpretive Data was last revised on 2017. Blood 09/21/2024 9:35 AM CDT 09/21/2024 9:59 PM CDT Russel Sharp MD LAB BLOOD ORDERABLES Final Result Performing Organization Address [facility] Co de Phone Number [facility] [phone] Department [place] [address] * PSA screen (09/21/2024 9:35 AM CDT) [...] BLOOD ORDERABLES Final Result Performing Organization Address City/[facility] Co de Phone Number [facility] [phone] Department [place] [address] * (ABNORMAL) CBC with auto differential (09/21/2024 9:35 AM CDT) WBC 9.17 3.80 - 9.90 K/cumm Hgb 14.5 13.0 - 17.5 g/dL [facility] Hct 45.4 38.9 - 50.3 % [facility] Plt 259 150 - 400 K/cumm [facility] MPV 10.3 9.1 - 12.3 fL [facility] RBC 4.76 4.30 - 5.80 M/cumm [facility] MCV 95.4 81.3 - 96.4 fL [facility] MCH 30.5 27.1 - 33.3 pg [facility] MCHC 31.9(L) 32.3 - 35.7 g/dL [facility] RDW CV 14.0 11.1 - 14.9 % [facility] RDW SD 48.6(H) 35.7 - 48.1 fL [facility] NRBC abs 0.00 0.00 - 0.01 K/cumm [facility] Blood 09/21/2024 9:35 AM CDT 09/21/2024 9:59 PM CDT Russel Sharp MD LAB BLOOD ORDERABLES Final Result Performing Organization Address City/[facility]/ZIP Co de Phone Number [facility]A [facility] [phone] [place] [address] * Vitamin D 25 hydroxy (09/21/2024 9:35 AM CDT) Vitamin D 25-OH 40 30 - 80 ng/mL Blood 09/21/2024 9:35 AM CDT 09/21/2024 9:59 PM CDT Russel Sharp MD LAB BLOOD ORDERABLES Final Result Performing Organization Address City/[facility] Co de Phone Number [facility]A [facility] [phone] [employer] [place] [address] * Lipid panel (09/21/2024 9:35 AM CDT) [...] on 2017. HDL 43 >=40 mg/dL [facility] Comment: Interpretive Data Ages < or = [...] 2017. LDL, calculated 73 <=129 mg/dL [facility] Comment: Interpretive Data Ages < or = [...] revised on 2024. Non-HDL Cholesterol 89 mg/dL [facility] Comment: Interpretive Data Ages < or = [...] last revised on 2017. Chol/HDL ratio 3 CERNER Blood 09/21/2024 9:35 AM CDT 09/21/2024 9:59 PM CDT us Russel Sharp MD LAB BLOOD ORDERABLES Final Result Performing Organization Address City/State/ZIP Co va Phone Number [facility] [phone] Department [place] [address] * (ABNORMAL) Comprehensive metabolic panel (09/21/2024 9:35 AM CDT) Sodium 138 135 - 145 mmol/L Potassium, pl 4.3 3.3 - 4.9 mmol/L [facility] Chloride 99 97 - 110 mmol/L [facility] CO2 28 22 - 32 mmol/L [facility] Anion gap 11 2 - 15 mmol/L [facility] BUN 16 6 - 25 mg/dL [facility] Creatinine 0.74(L) 0.80 - 1.30 mg/dL [facility] Glucose 93 70 - 199 mg/dL [facility] Comment: Interpretive Data Fasting glucose >/= 126 [...] classification and Diagnosis of Diabetes Diabetes Care 202; 46: S19-S40. Current interpretive data was last [...] Sharp MD LAB BLOOD ORDERABLES Final Result [facility] [address] Department [place] [address] * COLONOSCOPY (06/18/2022 9:41 AM PROFESSOR OF SPECIAL EDUCATION) Anatomical Region Laterality Modality Other Narrative Procedure Note Mamadou Mcwilliams MD - 06/18/2022 9:41 AM CST [facility] Patient Name: Akhil Morton Procedure Date: 06/18/2022 9:41 AM Date of : 1955 Admit Type: Outpatient Age: 66 Gender: Male Attending MD: Mamadou Mcwilliams M.D. Room: [facility] ENDOSCOPY ROOM 2 Note Status: Finalized Patient [...] scope was passed under direct vision. TheColonoscope [id number] was introduced through the anus and advanced [...] 9:41 AM Procedure Code(s): --- Professional --- 23575, Colonoscopy, flexible; with removal of tumor(s), polyp(s), or other lesion(s) by snare technique 11675, 59, Colonoscopy, flexible; with biopsy, single or multiple Diagnosis Code(s): --- Professional --- K57.30, Diverticulosis of large intestine without perforation orabscess without bleeding D12.4, Benign neoplasm of descending colon D12.2, Benign neoplasm of ascending colon K64.9, Unspecified hemorrhoids Z86.010, Personal history of colonic polyps CPT copyright 2020 [employer]. All rights reserved. The codes documented in this report are preliminary and upon jukebox checker reviewmay be revised to meet current compliance requirements. Recognized by the [employer] for promoting quality in endoscopy us Mamadou Mcwilliams MD ENDOSCOPY PROCEDURES Final Re sult * Hepatitis C antibody (03/26/2022 2:48 PM PROFESSOR OF SPECIAL EDUCATION) Hep C Ab Nonreactive Nonreactive [facility] [...] revised on 2019. Blood 03/26/2022 2:48 PM PROFESSOR [employer] SPECIAL EDUCATION 03/26/2022 7:56 PM PROF[employer]OR [employer] EDUCATION us Rose Marie Grace NP LAB MICROBIOLOGY - GENERAL ORDER TRACY Final Result [facility] [address] Department [place] [address] from Last 3 Months or Most Recently Relevant to Health Maintenance Insurance MEDICARE [facility] Address: [address] [address] [place] [address] [facility] IDPA MEDICARE [facility] Address: [address] [address] [place] [address] Advance Directives For more information, please contact: [phone] * Full Code (Latest Code Status on File) Date Activated Date Inactivated Comments 06/18/2022 9:40 AM 06/18/2022 3:37 PM * Full Code Date Activated Date Inactivated Comments 03/24/2018 10:02 AM 03/24/2018 3:22 PM * Full Code Date Activated Date Inactivated Comments 03/24/2018 10:01 AM 03/24/2018 10:02 AM Care Teams Head Scorer Relationship Specialty Start Date End Date Russel Sharp MD [address] [facility] [address] [place] [address] PCP - General Family Medicine 03/26/22 Rose Marie Grace NP [address] [place] [address] Nurse Practitioner Family Medicine 04/06/22
[2024-12-11 12:22] VITALS: BP 139/91; PULSE 92; RESP 20; O2SAT 97
--- OUTSIDE RECORDS SUMMARY | 2024-12-11 12:44 | XMS_ITS | Referral Summary ---
Author Organization [facility] Address [address] [place] [address] Care Team Providers Care Case Repairer Name Role Phone Russel Sharp MD Primary Care Provider [phone] Rose Marie Grace NP Unavailable Encounters Date Type Department Care Team Description 12/11/2024 11:00 AM CDT Office Visit [facility] at [address] [phone] Scarlet Garcia NP Leg swelling (Primary Dx); Leg erythema; Lymphedema 11/24/2024 Telephone [facility] [address] [phone] Russel Sharp MD Alternative medication 11/05/2024 7:30 AM CDT Office Visit [facility] at [address] [phone] Carol Perales NP Acute bronchitis, unspecified organism (Primary Dx); Mild intermittent asthma without complication; Mild persistent asthma with exacerbation 10/07/2024 Plan of Care Documentation [facility] [address] [place] [id number] 10/07/2024 1:30 PM CDT Therapy [facility] [address] [place] [id number] Gianna Harrison, OT Lymphedema 09/28/2024 1:30 PM CDT Office Visit [facility] at [address] [phone] Russel Sharp MD Encounter for Medicare annual [...] hepatitis B screening test 09/22/2024 Results Follow-Up [facility] [address] [phone] Russel Sharp MD PSA screen, Vitamin D 25 hydroxy, Lipid panel, Additional followed-up results: 4 09/21/2024 9:35 AM CDT - 09/21/2024 11:59 PM CDT Hospital Encounter [address] [address] Prostate cancer screening; Vitamin D deficiency; Screening for cholesterol level; Benign essential hypertension Discharge Disposition: Discharge to home or self care 09/21/2024 9:45 AM CDT Lab [facility] at [address] [phone] Benign essential hypertension (Primary Dx) [...] mouth 2 (two) times a day Active [id number] -fish oil (Fish OiL) 120 mg-180 mg- [...] 04/19/2024 Assessment & Plan (04/19/2024 5:[address] STARTER): - Start supplementation with OTC vitamin-D 3 [...] provided. Assessment & Plan (04/19/2024 5:51 PM [address] STARTER): - heart healthy, low-fat/high-fiber diet - Aim to walk at least 30 minutes daily- divided intervals as tolerated Low serum high density lipoprotein (HDL) 024 Assessment & Plan (04/19/2024 5:58 PM STREETCAR STARTER): - LDL at goal; HDL low- Pt [...] swallow. Assessment & Plan (06/26/2023 11:22 AM STREETCAR STARTER): Viral rapid tests Zpak, steroid course sent [...] swallow. Assessment & Plan (03/26/2022 2:45 PM STREETCAR STARTER): Condition stable, will send in prn inhaler to gauge control. RODERICK (obstructive sleep apnea) 03/26/2022 Assessment & Plan (04/19/2024 5:51 PM ST[address]ETCAR STARTER): - Continue routine CPAP use Assessment & Plan (03/26/2022 2:44 PM STREETCAR STARTER): Needs a new CPAP, his is recalled. Has noticed increased daytime sleepiness without usage. Was using cpap for hours 8/night 7 nights/wk and was feeling much better with it. Would recommend usage of CPAP, will order new machine for patient. Gastroesophageal reflux disease without esophagi tis 03/26/2022 Assessment & Plan (03/26/2022 2:49 PM STREETCAR STARTER): Switching out patient's Zantac for Pepcid Pt [...] recommended Assessment & Plan (03/26/2022 2:57 PM STREETCAR STARTER): Discussed CHIP program. Labs ordered, pt education provided in regards to nutrition. Encouraged to keep a food diary, Healthy, low carbohydrate lifestyle and exercise for 150min/week recommended Encounter for screening colonoscopy 02/13/2018 Overview (02/13/2018): Added automatically from request for surgery [id number] Assessment & Plan (03/26/2022 1:48 PM [address] STARTER): Previous Colonoscopy 2017, repeat every 3 years Referral to GI placed Allergic rhinitis 07/29/2017 Assessment & Plan (03/26/2022 2:51 PM STREETCAR STARTER): Stable on Claritin. Benign essential hypertension 07/29/2017 Assessment & Plan (09/28/2024 1:46 PM CDT): Blood Pressure Follow-up: Lifestyle modifications education provided on sodium reduction, increase physical activity, reduce alcohol consumption, and weight reduction. Assessment & Plan (04/19/2024 5:55 PM [address] STARTER): - Chronic; stable at goal of < [...] Triamterene-HCTZ. Assessment & Plan (03/26/2022 2:51 PM STREETCAR STARTER): BP stable in office, continues Amlodipine, Toprol-XL, and Triamterene-Hctz. Labs ordered. History of colonic polyps 07/29/2017 Assessment & Plan (03/26/2022 1:48 PM [address] STARTER): Previous Colonoscopy 2017, repeat every 3 years Referral to GI placed Intellectual functioning disability 07/29/2017 Assessment & Plan (03/26/2022 2:48 PM STREETCAR STARTER): Accompanied by brother in law today. Brother [...] (12 YEARS AND UP) 02/04/2024 COVID-19 mRNA (Appiphany) 0.3 m L (30 mcg) vaccine (12 [...] Sexual Orientation Straight 07/09/2023 6: 15 [address] STARTER Last Filed Vital Signs Vital Sign Reading [...] Prostate cancer screening COLONOSCOPY 06/18/2022 9:41 [address] STARTER HEPATITIS C ANTIBODY Routine 03/26/2022 2:48 [address]ARTER Encounter for hepatitis C screening test for [...] Sharp MD LAB BLOOD ORDERABLES Final Result [facility] [address] Department [place] [address] * (ABNORMAL) Differential, auto (09/21/2024 9:35 AM CDT) Neutrophil abs 5.92 1.50 - 6.50 K/cumm Imm gran abs 0.04 0.00 - 0.10 K/cumm [facility] Lymphocyte abs 2.12 0.80 - 3.30 K/cumm [facility] Monocyte abs 0.85(H) 0.20 - 0.80 K/cumm [facility] Eosinophil abs 0.13 0.00 - 0.50 K/cumm [facility] Basophil abs 0.11(H) 0.00 - 0.10 K/cumm [facility] Neutrophil pct 64.6 % [facility] Comment: Interpretive Data Percent cell count reference ranges are not reported, since discordance with absolute values may lead to misinterpretation of CBC data. Current Interpretive Data was last revised on 2017. Imm gran pct 0.4 % [facility] Comment: Interpretive Data Percent cell count reference ranges are not reported, since discordance with absolute values may lead to misinterpretation of CBC data. Current Interpretive Data was last revised on 2017. Lymphocyte pct 23.1 % [facility] Comment: Interpretive Data Percent cell count reference ranges are not reported, since discordance with absolute values may lead to misinterpretation of CBC data. Current Interpretive Data was last revised on 2017. Monocyte pct 9.3 % [facility] Comment: Interpretive Data Percent cell count reference ranges are not reported, since discordance with absolute values may lead to misinterpretation of CBC data. Current Interpretive Data was last revised on 2017. Eosinophil pct 1.4 % [facility] Comment: Interpretive Data Percent cell count reference ranges are not reported, since discordance with absolute values may lead to misinterpretation of CBC data. Current Interpretive Data was last revised on 2017. Basophil pct 1.2 % [facility] Comment: Interpretive Data Percent cell count reference ranges are not reported, since discordance with absolute values may lead to misinterpretation of CBC data. Current Interpretive Data was last revised on 2017. Blood 09/21/2024 9:35 AM CDT 09/21/2024 9:59 PM CDT Russel Sharp MD LAB BLOOD ORDERABLES Final Result Performing Organization Address [facility] Phone Number [facility] [phone] [facility] [place] [address] * PSA screen (09/21/2024 9:35 AM CDT) [...] BLOOD ORDERABLES Final Result Performing Organization Address [facility] de Phone Number [facility] [address] Department [place] [address] * (ABNORMAL) CBC with auto differential (09/21/2024 9:35 AM CDT) WBC 9.17 3.80 - 9.90 K/cumm Hgb 14.5 13.0 - 17.5 g/dL [facility] Hct 45.4 38.9 - 50.3 % [facility] Plt 259 150 - 400 K/cumm [facility] MPV 10.3 9.1 - 12.3 fL [facility] RBC 4.76 4.30 - 5.80 M/cumm [facility] MCV 95.4 81.3 - 96.4 fL CERNER [...] BLOOD ORDERABLES Final Result Performing Organization Address City/[facility] Co de Phone Number [facility] [phone] Department [place] [address] * Vitamin D 25 hydroxy (09/21/2024 9:35 AM CDT) Vitamin D 25-OH 40 30 - 80 ng/mL Blood 09/21/2024 9:35 AM CDT 09/21/2024 9:59 PM CDT Russel Sharp MD LAB BLOOD ORDERABLES Final Result Performing Organization Address [facility] Co de Phone Number [facility] [phone] Department [place] [address] * Lipid panel (09/21/2024 9:35 AM CDT) [...] revised on 2024. Non-HDL Cholesterol 89 mg/dL [facility] Comment: Interpretive Data Ages < or = [...] last revised on 2017. Chol/HDL ratio 3 [facility] Blood 09/21/2024 9:35 AM CDT 09/21/2024 9:59 PM CDT us Russel Sharp MD LAB BLOOD ORDERABLES Final Result [facility] [id number] Department [place] [address] * (ABNORMAL) Comprehensive metabolic panel (09/21/2024 9:35 AM CDT) Sodium 138 135 - 145 mmol/L Potassium, pl 4.3 3.3 - 4.9 mmol/L CERNER Chloride 99 97 - 110 mmol/L [facility] CO2 28 22 - 32 mmol/L [facility] Anion gap 11 2 - 15 mmol/L [facility] BUN 16 6 - 25 mg/dL [facility] Creatinine 0.74(L) 0.80 - 1.30 mg/dL [facility] Glucose 93 70 - 199 mg/dL [facility] Comment: Interpretive Data Fasting glucose >/= 126 [...] Sharp MD LAB BLOOD ORDERABLES Final Result [facility] [address] Department [place] [address] * COLONOSCOPY (06/18/2022 9:[address]) Anatomical Region Laterality Modality Other Narrative Procedure Note Mamadou Mcwilliams MD - 06/18/2022 9:[address] [facility] Patient Name: Akhil Morton Procedure Date: 06/18/2022 9:41 AM Date of : 1955 Admit Type: Outpatient Age: 66 Gender: Male Attending MD: Mamadou Mcwilliams M.D. Room: [facility] 2 Note Status: Finalized Patient [...] scope was passed under direct vision. TheColonoscope [id number] was introduced through the anus and advanced [...] 9:41 AM Procedure Code(s): --- Professional --- 57217, Colonoscopy, flexible; with removal of tumor(s), polyp(s), or other lesion(s) by snare technique 20438, 59, Colonoscopy, flexible; with biopsy, single or multiple Diagnosis Code(s): --- Professional --- K57.30, Diverticulosis of large intestine without perforation orabscess without bleeding D12.4, Benign neoplasm of descending colon D12.2, Benign neoplasm of ascending colon K64.9, Unspecified hemorrhoids Z86.010, Personal history of colonic polyps CPT copyright 2020 [employer]. All rights reserved. The codes documented in this report are preliminary and upon program manager reviewmay be revised to meet current compliance requirements. Recognized by the [employer] for promoting quality in endoscopy us Mamadou Mcwilliams MD ENDOSCOPY PROCEDURES Final Re sult * Hepatitis C antibody (03/26/2022 2:[address]TER) Hep C Ab Nonreactive Nonreactive [facility] [...] revised on 2019. Blood 03/26/2022 2:[address]TER 03/26/2022 7:56 [address] STARTER us Rose Marie Grace NP LAB MICROBIOLOGY - GENERAL ORDER TRACY Final Result [facility] [id number] Department [place] [address] from Last 3 Months or Most Recently Relevant to Health Maintenance Insurance MEDICARE [facility] [employer]PA MEDICARE Advance Directives For more information, please contact: [phone] * Full Code (Latest Code Status on File) Date Activated Date Inactivated Comments 06/18/2022 9:40 AM 06/18/2022 3:37 PM * Full Code Date Activated Date Inactivated Comments 03/24/2018 10:02 AM 03/24/2018 3:22 PM * Full Code Date Activated Date Inactivated Comments 03/24/2018 10:01 AM 03/24/2018 10:02 AM Care Teams Case Repairer Relationship Specialty Start Date End Date Russel Sharp MD [address] [place] [address] PCP - General Family Medicine 03/26/22 Rose Marie Grace NP [address] [place] [address] Nurse Practitioner Family Medicine 04/06/22
--- OUTSIDE RECORDS SUMMARY | 2024-12-11 12:44 | XMS_ITS | Clinical Summary ---
Author Organization [facility] Address [address] [place] [address] Care Team Providers Care Form Maker Name Role Phone Russel Sharp MD Primary Care Provider [phone] Rose Marie Grace NP Unavailable Allergies Active Allergy Reactions Criticality Noted Date Comments Lisinopril Cough Low 02/20/2003 Medications acetaminophen (TYLENOL) 500 mg tablet Take 1 tablet (500 mg total) by mouth every 6 (six) hours as needed for pain Active docusate sodium (COLACE) 100 mg capsuleIndicatio ns:constipation Take 1 capsule (100 mg total) by mouth 2 (two) times a day Active [id number] -fish oil (Fish OiL) 120 mg-180 mg- [...] 04/19/2024 Assessment & Plan (04/19/2024 5:49 PM BALLOON SANDER): - Start supplementation with OTC vitamin-D 3 [...] provided. Assessment & Plan (04/19/2024 5:51 PM BALLOON SANDER): - heart healthy, low-fat/high-fiber diet - Aim to walk at least 30 minutes daily- divided intervals as tolerated Low serum high density lipoprotein (HDL) 024 Assessment & Plan (04/19/2024 5:58 PM BALLOON SANDER): - LDL at goal; HDL low- Pt [...] swallow. Assessment & Plan (06/26/2023 11:22 AM BALLOON SANDER): Viral rapid tests Zpak, steroid course sent [...] swallow. Assessment & Plan (03/26/2022 2:45 PM BALLOON SANDER): Condition stable, will send in prn inhaler to gauge control. RODERICK (obstructive sleep apnea) 03/26/2022 Assessment & Plan (04/19/2024 5:51 PM BALLOON SANDER): - Continue routine CPAP use Assessment & Plan (03/26/2022 2:44 PM BALLOON SANDER): Needs a new CPAP, his is recalled. Has noticed increased daytime sleepiness without usage. Was using cpap for hours 8/night 7 nights/wk and was feeling much better with it. Would recommend usage of CPAP, will order new machine for patient. Gastroesophageal reflux disease without esophagi tis 03/26/2022 Assessment & Plan (03/26/2022 2:49 PM BALLOON SANDER): Switching out patient's Zantac for Pepcid Pt [...] recommended Assessment & Plan (03/26/2022 2:57 PM BALLOON SANDER): Discussed CHIP program. Labs ordered, pt education provided in regards to nutrition. Encouraged to keep a food diary, Healthy, low carbohydrate lifestyle and exercise for 150min/week recommended Encounter for screening colonoscopy 02/13/2018 Overview (02/13/2018): Added automatically from request for surgery [id number] Assessment & Plan (03/26/2022 1:48 PM BALLOON SANDER): Previous Colonoscopy 2017, repeat every 3 years Referral to GI placed Allergic rhinitis 07/29/2017 Assessment & Plan (03/26/2022 2:51 PM BALLOON SANDER): Stable on Claritin. Benign essential hypertension 07/29/2017 Assessment & Plan (09/28/2024 1:46 PM CDT): Blood Pressure Follow-up: Lifestyle modifications education provided on sodium reduction, increase physical activity, reduce alcohol consumption, and weight reduction. Assessment & Plan (04/19/2024 5:55 PM BALLOON SANDER): - Chronic; stable at goal of < [...] Triamterene-HCTZ. Assessment & Plan (03/26/2022 2:51 PM BALLOON SANDER): BP stable in office, continues Amlodipine, Toprol-XL, and Triamterene-Hctz. Labs ordered. History of colonic polyps 07/29/2017 Assessment & Plan (03/26/2022 1:48 PM BALLOON SANDER): Previous Colonoscopy 2018, repeat every 3 years Referral to GI placed Intellectual functioning disability 07/29/2017 Assessment & Plan (03/26/2022 2:48 PM BALLOON SANDER): Accompanied by brother in law today. Brother in law states that patient tends to be overly agreeable and not 100% understand what directions are/will say what he thinks what provider wants to hear. Will continue to educate and ensure understanding. Lumbar spondylosis 07/29/2017 Mild mental retardation (I.Q. 50-70) 07/29/2017 Encounters Date Type Department Care Team Description 12/11/2024 11:00 AM CDT Office Visit [facility] at [address] [phone] Scarlet Garcia NP Leg swelling (Primary Dx); Leg erythema; Lymphedema 11/24/2024 Telephone [facility] [address] [phone] Russel Sharp MD Alternative medication 11/05/2024 7:30 AM CDT Office Visit [facility] at [address] [phone] Carol Perales NP Acute bronchitis, unspecified organism (Primary Dx); Mild intermittent asthma without complication; Mild persistent asthma with exacerbation 10/07/2024 1:30 PM CDT Therapy [facility] [address] [place] [id number] Gianna Harrison, OT Lymphedema 10/07/2024 Plan of Care Documentation [facility] [address] [place] [address] 09/28/2024 1:30 PM CDT Office Visit [facility] at [address] [phone] Russel Sharp MD Encounter for [...] hepatitis B screening test 09/22/2024 Results Follow-Up [facility] at [address] [phone] Russel Sharp MD PSA screen, Vitamin D 25 hydroxy, Lipid panel, Additional followed-up results: 4 09/21/2024 9:45 AM CDT Lab [facility] at [address] [phone] Benign essential hypertension (Primary Dx) 09/21/2024 9:35 AM CDT - 09/21/2024 11:59 PM CDT Hospital Encounter [place] [phone] Prostate cancer screening; Vitamin D deficiency; Screening for cholesterol level; Benign essential hypertension Discharge Disposition: Discharge to home or self care from Last 3 Months Immunizations Immunization Administration Dates Next Due COVID-19 MRNA ([employer]) .5 M L (50 MCG) VACCINE (12 YEARS AND UP) 02/04/2024 COVID-19 mRNA ([employer]) 0.3 m L (30 mcg) vaccine (12 [...] - 05/12/2003 staph infection left thigh at [facility] COLONOSCOPY 03/24/2018 1st Medical History Medical History [...] Sexual Orientation Straight 07/09/2023 6: 15 PM BALLOON SANDER Obstetrics History Last Filed Vital Signs Vital [...] Prostate cancer screening COLONOSCOPY 06/18/2022 9:41 AM BALLOON SANDER HEPATITIS C ANTIBODY Routine 03/26/2022 2:48 PM BALLOON SANDER Encounter for hepatitis C screening test for [...] MD LAB BLOOD ORDERABLES Final Result [facility]URA [address] [facility] Department [place] [address] * (ABNORMAL) Differential, auto (09/21/2024 9:35 AM CDT) Neutrophil abs 5.92 1.50 - 6.50 K/cumm Imm gran abs 0.04 0.00 - 0.10 K/cumm [facility] Lymphocyte abs 2.12 0.80 - 3.30 K/cumm [facility] Monocyte abs 0.85(H) 0.20 - 0.80 K/cumm [facility] Eosinophil abs 0.13 0.00 - 0.50 K/cumm [facility] Basophil abs 0.11(H) 0.00 - 0.10 K/cumm [facility] Neutrophil pct 64.6 % [facility] Comment: Interpretive Data Percent cell count reference ranges are not reported, since discordance with absolute values may lead to misinterpretation of CBC data. Current Interpretive Data was last revised on 2017. Imm gran pct 0.4 % [facility] Comment: Interpretive Data Percent cell count reference ranges are not reported, since discordance with absolute values may lead to misinterpretation of CBC data. Current Interpretive Data was last revised on 2017. Lymphocyte pct 23.1 % [facility] Comment: Interpretive Data Percent cell count reference ranges are not reported, since discordance with absolute values may lead to misinterpretation of CBC data. Current Interpretive Data was last revised on 2017. Monocyte pct 9.3 % [facility] Comment: Interpretive Data Percent cell count reference ranges are not reported, since discordance with absolute values may lead to misinterpretation of CBC data. Current Interpretive Data was last revised on 2017. Eosinophil pct 1.4 % [facility] Comment: Interpretive Data Percent cell count reference ranges are not reported, since discordance with absolute values may lead to misinterpretation of CBC data. Current Interpretive Data was last revised on 2017. Basophil pct 1.2 % [facility] Comment: Interpretive Data Percent cell count reference ranges are not reported, since discordance with absolute values may lead to misinterpretation of CBC data. Current Interpretive Data was last revised on 2017. Blood 09/21/2024 9:35 AM CDT 09/21/2024 9:59 PM CDT Russel Sharp MD LAB BLOOD ORDERABLES Final Result Performing Organization Address [facility] Co de Phone Number LAURA [place] [phone] Department [place] [address] * PSA screen (09/21/2024 9:35 AM CDT) [...] ORDERABLES Final Result Performing Organization Address City/[facility] Co de Phone Number LAURA [place] [phone] Department [place] [address] * (ABNORMAL) CBC with auto differential (09/21/2024 9:35 AM CDT) WBC 9.17 3.80 - 9.90 K/cumm Hgb 14.5 13.0 - 17.5 g/dL [facility] Hct 45.4 38.9 - 50.3 % [facility] Plt 259 150 - 400 K/cumm [facility] MPV 10.3 9.1 - 12.3 fL [facility] RBC 4.76 4.30 - 5.80 M/cumm [facility] MCV 95.4 81.3 - 96.4 fL [facility] MCH 30.5 27.1 - 33.3 pg [facility] MCHC 31.9(L) 32.3 - 35.7 g/dL [facility] RDW CV 14.0 11.1 - 14.9 % [facility] RDW SD 48.6(H) 35.7 - 48.1 fL [facility] NRBC abs 0.00 0.00 - 0.01 K/cumm [facility] Blood 09/21/2024 9:35 AM CDT 09/21/2024 9:59 PM CDT Russel Sharp MD LAB BLOOD ORDERABLES Final Result Performing Organization Address City/[facility]/ZIP Co de Phone Number LAURA [place] [phone] [place] [address] * Vitamin D 25 hydroxy (09/21/2024 9:35 AM CDT) Vitamin D 25-OH 40 30 - 80 ng/mL Blood 09/21/2024 9:35 AM CDT 09/21/2024 9:59 PM CDT Russel Sharp MD LAB BLOOD ORDERABLES Final Result Performing Organization Address City/[facility] Co de Phone Number LAURA [place] [phone] [place] [address] * Lipid panel (09/21/2024 9:35 AM CDT) [...] revised on 2024. Non-HDL Cholesterol 89 mg/dL [facility] Comment: Interpretive Data Ages < or = [...] Final Result Performing Organization Address City/State/ZIP Co nv Phone Number [facility] [address] Department [place] [address] * (ABNORMAL) Comprehensive metabolic panel (09/21/2024 9:35 AM CDT) Sodium 138 135 - 145 mmol/L Potassium, pl 4.3 3.3 - 4.9 mmol/L [facility] Chloride 99 97 - 110 mmol/L [facility] CO2 28 22 - 32 mmol/L [facility] Anion gap 11 2 - 15 mmol/L [facility] BUN 16 6 - 25 mg/dL [facility] Creatinine 0.74(L) 0.80 - 1.30 mg/dL [facility] Glucose 93 70 - 199 mg/dL [facility] Comment: Interpretive Data Fasting glucose >/= 126 [...] LAB BLOOD ORDERABLES Final Result [facility]A [place] [address] Department [place] [address] * COLONOSCOPY (06/18/2022 9:41 AM BALLOON SANDER) Anatomical Region Laterality Modality Other Narrative Procedure Note Mamadou Mcwilliams MD - 06/18/2022 9:[address] [facility] Patient Name: Akhil Morton Procedure Date: 06/18/2022 9:41 AM Date of : 1955 Admit Type: Outpatient Age: 66 Gender: Male Attending MD: Mamadou Mcwilliams M.D. Room: [facility] ENDOSCOPY ROOM 2 Note Status: Finalized Patient [...] scope was passed under direct vision. TheColonoscope [id number] was introduced through the anus and advanced [...] 9:41 AM Procedure Code(s): --- Professional --- 84892, Colonoscopy, flexible; with removal of tumor(s), polyp(s), or other lesion(s) by snare technique 20009, 59, Colonoscopy, flexible; with biopsy, single or multiple Diagnosis Code(s): --- Professional --- K57.30, Diverticulosis of large intestine without perforation orabscess without bleeding D12.4, Benign neoplasm of descending colon D12.2, Benign neoplasm of ascending colon K64.9, Unspecified hemorrhoids Z86.010, Personal history of colonic polyps CPT copyright 2020 [employer]. All rights reserved. The codes documented in this report are preliminary and upon plaster patternmaker reviewmay be revised to meet current compliance requirements. Recognized by the [employer] for promoting quality in endoscopy us Mamadou Mcwilliams MD ENDOSCOPY PROCEDURES Final Re sult * Hepatitis C antibody (03/26/2022 2:48 PM BALLOON SANDER) Hep C Ab Nonreactive Nonreactive [facility] [...] revised on 2019. Blood 03/26/2022 2:48 PM BALLOON SANDER 03/26/2022 7:56 PM BALLOON SANDER us Rose Marie Grace NP LAB MICROBIOLOGY - GENERAL ORDER TRACY Final Result [facility]A [address] Department [place] [address] from Last 3 Months or Most Recently Relevant to Health Maintenance Insurance MEDICARE [facility] Address: [address] [address] [place] [address] [facility] [employer] Address: [address] [address] [place] [address] Advance Directives For more information, please contact: [phone] * Full Code (Latest Code Status on File) Date Activated Date Inactivated Comments 06/18/2022 9:40 AM 06/18/2022 3:37 PM * Full Code Date Activated Date Inactivated Comments 03/24/2018 10:02 AM 03/24/2018 3:22 PM * Full Code Date Activated Date Inactivated Comments 03/24/2018 10:01 AM 03/24/2018 10:02 AM Care Teams Form Maker Relationship Specialty Start Date End Date Russel Sharp MD [address] [facility] [address] [place] [address] PCP - General Family Medicine 03/26/22 Rose Marie Grace NP [address] [place] [address] Nurse Practitioner Family Medicine 04/06/22
--- OUTSIDE RECORDS SUMMARY | 2024-12-11 12:44 | XMS_ITS | Encounter Summary ---
Author Organization [facility] Address [address] [place] [address] Care Team Providers Care Drier Tender Name Role Phone Russel Sharp MD Primary Care Provider [phone] Rose Marie Grace NP Unavailable Reason for Visit * Reason Comments Edema Patient here for c/o leg swelling more than usual. Encounter Details Date Type Department Care Team (Late st Contact Info) Description 12/11/2024 11:00 AM CDT Office Visit [facility] at [address] [phone] Scarlet Garcia NP [address] [place] [id number] Leg swelling (Primary Dx); Leg erythema; [...] Sexual Orientation Straight 07/09/2023 6: 15 PM FLIGHT SERVICE AGENT documented as of this encounter Last Filed [...] lymphedema documented in this encounter Care Teams Drier Tender Relationship Specialty Start Date End Date Russel Sharp MD [address] [place] [address] PCP - General Family Medicine 03/26/22 Rose Marie Grace NP [address] [place] [address] Nurse Practitioner Family Medicine 04/06/22 documented as of this encounter
[2024-12-11 12:45] LABS: Hematocrit 40.4 % (42.0-52.0); Hemoglobin 14.0 g/dL (14.0-18.0); Immature Granulocyte Percent A 1.0 % (0-0.5); Lymphocytes Absolute Auto 1.93 K/mm3 (0.9-3.2); Mean Corpuscular HGB Conc 34.7 g/dl (32-36); Mean Corpuscular Hemoglobin 30.4 pg (26-34); Mean Corpuscular Volume 87.8 fl (80-100); Nucleated Red Blood Cells Absolute Auto 0.000 K/mm3 (0.0-0.012); Nucleated Red Blood Cells Perc 0.0 % (0.0-0.2); Platelet Count Result 327 k/mm3 (150-375); Red Blood Count 4.60 M/mm3 (4.6-6.20); White Blood Count 9.3 K/mm3 (4.5-10.0)
[2024-12-11 13:02] LABS: Anion Gap 7 mmol/L (4-12); Blood Urea Nitrogen 17 mg/dL (9-20); Calcium 9.6 mg/dL (8.4-10.2); Carbon Dioxide 26 mmol/L (22-30); Chloride 98 mmol/L (98-107); Estimated Glomerular Filt Rate > 60; Glucose 127 mg/dL (65-110); Potassium 4.0 mmol/L (3.4-5.0); Sodium 131 mmol/L (137-145)
[2024-12-11 13:05] LABS: INR 1.3; Prothrombin Time 16.4 Seconds (11.1-14.7)
[2024-12-11 13:06] LABS: Partial Thromboplastin Time 44.0 Seconds (22.3-36.8)
--- NOTE | 2024-12-11 13:46 | ED_ITS ---
HPI - Extremity Problem General Chief complaint: Extremity Problem,Nontraumatic Stated complaint: left leg swelling Time Seen by Provider: 12/11/24 12:28 History of Present Illness HPI Narrative: 69-year-old male presenting to the emergency department with left leg swelling and redness. He has a history of bilateral lymphedema and currently in the process of getting some compression socks and referral to occupational therapy. He states for last week he has been having some pain and redness in his left lower extremity. He has a history of AFib but is compliant with his Eliquis twice daily. No history of DVTs. He went to urgent care and they referred him to the emergency department for an ultrasound. Patient denies any difficulty ambulating, no pain in the thigh or pain with walking or any claudication symptoms. No fever chills. No traumatic injuries. No recent antibiotic use. Related Data Home Medications ?Medication ?Instructions ?Recorded ?Confirmed ?Last Taken ?Type ranitidine HCl 75 mg tablet 75 mg PO DAILY 07/03/19 06/12/21 Unknown History Allergies Allergy/AdvReac Type Severity Reaction Status Date / Time zinc Allergy Intermediate Rash Verified 06/12/21 09:13 lisinopril Allergy Unknown cough Verified 06/12/21 09:13 Review of Systems 2 Review of Systems: As reviewed above in HPI [facility] Family History Family History Father Hypertension Family history of Alzheimer's disease Sibling Hypertension Mother Family history of kidney disease Other Carcinoma of colon Social History Social History Second hand tobacco smoke exposure: Yes Exam 2 Narrative: GENERAL: [Well-appearing, well-nourished, and in no acute distress.] HEAD: [Normocephalic, atraumatic.] EYES: [PERRLA and EOMI.] ENT: Nares clear, no rhinorrhea or epistaxis. Mucous membranes moist. NECK: Supple. CHEST: [Clear to auscultation. No respiratory distress.] HEART: [Regular rate and rhythm]. No murmur heard. [Normal peripheral pulses.] ABDOMEN: [Soft, nondistended], [nontender], [No rigidity or guarding] EXTREMITIES: Normal range of motion. Bilateral lymphedema, left-sided lower extremity swelling slightly worse than right, mild erythema over the left anterior xiao, blanches with palpation. No pain with compression of the left leg, good range of motion and ambulatory without difficulty. SKIN: Warm, dry, no rash. NEURO: [No focal deficits]. Alert and oriented [x3.] PSYCH: [Normal mood and affect.] Course Vital Signs Vital signs: Vital Signs Pulse Rate 92 12/11/24 12:22 Respiratory Rate 20 12/11/24 12:22 Blood Pressure 139/91 H 12/11/24 12:22 Pulse Oximetry 97 12/11/24 12:22 Oxygen Delivery Room Air 12/11/24 12:22 Pulse Rate 92 12/11/24 12:22 Respiratory Rate 20 12/11/24 12:22 Blood Pressure 139/91 H 12/11/24 12:22 Pulse Oximetry 97 12/11/24 12:22 Oxygen Delivery Room Air 12/11/24 12:22 MDM - Extremity (Nontraumatic) MDM Narrative Medical decision making narrative: 69-year-old male presenting to the emergency department with left leg swelling and redness. He has a history of bilateral lymphedema and currently in the process of getting some compression socks and referral to occupational therapy. He states for last week he has been having some pain and redness in his left lower extremity. He has a history of AFib but is compliant with his Eliquis twice daily. No history of DVTs. He went to urgent care and they referred him to the emergency department for an ultrasound. Patient denies any difficulty ambulating, no pain in the thigh or pain with walking or any claudication symptoms. No fever chills. No traumatic injuries. No recent antibiotic use. Normal range of motion. Bilateral lymphedema, left-sided lower extremity swelling slightly worse than right, mild erythema over the left anterior xiao, blanches with palpation. No pain with compression of the left leg, good range of motion and ambulatory without difficulty. Patient has normal vital signs and examination consistent with either cellulitis localized to left lower extremity versus DVT. Less likely thromboembolic as he has a history of AFib and currently anticoagulated with therapeutic Eliquis. Laboratory studies were obtained as well as an ultrasound left leg.. Ultrasound shows no DVT. Laboratory studies showed no significant abnormalities. He was started on Bactrim and we discussed next steps including compression socks and Bactrim for 7 days. He will follow-up with regular doctor in discharge instructions provided. Lab Data 12/11/24 12:35 12/11/24 12:35 Labs: Lab Results 12/11/24 Range/Units 12:35 WBC 9.3 (4.5-10.0) K/mm3 RBC 4.60 (4.6-6.20) M/mm3 Hgb 14.0 (14.0-18.0) g/dL Hct 40.4 L (42.0-52.0) % MCV 87.8 (80-100) fl MCH 30.4 (26-34) pg MCHC 34.7 (32-36) g/dl RDW 13.2 (11.5-14.5) % Plt Count 327 (150-375) k/mm3 MPV 9.3 (7.4-10.4) fl Immature Gran % (Auto) 1.0 H (0-0.5) % Neut % (Auto) 69.7 (45.5-73.1) % Lymph % (Auto) 20.8 (18.3-44.2) % [place] % (Auto) 7.4 (2.6-8.5) % Eos % (Auto) 0.0 (0-4.4) % Baso % (Auto) 1.1 (0.2-1.2) % Lymph # (Auto) 1.93 (0.9-3.2) K/mm3 [place] # (Auto) 0.7 H (0.1-0.6) K/mm3 Eos # (Auto) 0.0 (0-0.3) K/mm3 Baso # (Auto) 0.1 (0.0-0.1) K/mm3 Abs Immat Gran (auto) 0.09 H (0.00-0.031) K/mm3 Absolute Neuts (auto) 6.5 (1.3-6.7) K/mm3 Absolute Nucleated RBC 0.000 (0.0-0.012) K/mm3 Nucleated RBC % 0.0 (0.0-0.2) % PT 16.4 H (11.1-14.7) Seconds INR 1.3 APTT 44.0 H (22.3-36.8) Seconds Sodium 131 L (137-145) mmol/L Potassium 4.0 (3.4-5.0) mmol/L Chloride 98 (98-107) mmol/L Carbon Dioxide 26 (22-30) mmol/L Anion Gap 7 (4-12) mmol/L BUN 17 (9-20) mg/dL Creatinine 0.74 (0.7-1.3) mg/dL Estim Creat Clear Calc Not Reportable Estimated GFR > 60 (59 - ) Glucose 127 H (65-110) mg/dL Calcium 9.6 (8.4-10.2) mg/dL Discharge Plan Discharge Clinical Impression: Cellulitis of left leg, Acquired lymphedema of lower extremity Patient Disposition: Home Condition: Stable Instructions: Antibiotic Form, Cellulitis (ED), Leg Edema (ED), Lymphedema (ED) Additional Instructions: You have a superficial soft tissue skin infection referred to a cellulitis and your left leg. No signs of DVT. We will treat this with antibiotics for next 7 days but you also need to comply with compression socks and low-salt diet. Follow up with regular doctors and occupational therapy. Return with any emergent concerns. Patient Language: Nepali Prescriptions: New sulfamethoxazole-trimethoprim [Bactrim DS] 800-160 mg tablet 1 tablet PO Q12H Qty: 14 0RF No Action ranitidine HCl 75 mg tablet 75 mg PO DAILY metoprolol succinate 100 mg tablet extended release 24 hr See Rx Instructions .ROUTE .COMPLEX Qty: 90 1RF Dose Instruction: TAKE 1 TABLET BY MOUTH EVERY DAY Rx Instructions: TAKE 1 TABLET BY MOUTH EVERY DAY triamterene-hydrochlorothiazid 37.5-25 mg tablet See Rx Instructions .ROUTE .COMPLEX Qty: 45 3RF Dose Instruction: TAKE 1/2 TABLET BY MOUTH DAILY IN THE MORNING Rx Instructions: TAKE 1/2 TABLET BY MOUTH DAILY IN THE MORNING amlodipine 5 mg tablet See Rx Instructions .ROUTE .COMPLEX Qty: 90 3RF Dose Instruction: TAKE 1 TABLET BY MOUTH EVERY DAY Rx Instructions: TAKE 1 TABLET BY MOUTH EVERY DAY meloxicam 15 mg tablet See Rx Instructions .ROUTE .COMPLEX Qty: 90 1RF Dose Instruction: TAKE 1 TABLET BY MOUTH EVERY DAY Rx Instructions: TAKE 1 TABLET BY MOUTH EVERY DAY Follow-up/Referrals: Geri,Ricardo Hernandez MD [Primary Care Provider] - Time of Disposition: 13:50
[2024-12-11] MEDS: SULFAMETHOXAZOLE/TRIMETHOPRIM 800/160 MG DS TABLET 1 TAB PO (14:01)
== END 2024-12-11 14:23 | disposition home or self-care (01) ==
PROVIDERS: Emergency Medicine; Emergency Provider Student in an Organized Health Care Education/Training Program; PCP Emergency Medicine
DX: L03.116 Cellulitis of left lower limb (principal); I89.0 Lymphedema, not elsewhere classified; I48.91 Unspecified atrial fibrillation; Z79.01 Long term (current) use of anticoagulants; Z77.22 Contact with and (suspected) exposure to environmental tobacco smoke (acute) (chronic)
CPT/HCPCS: 36415; 80048; 85025; 85610; 85730; 93971; 99284; A9270